=== PATIENT | female | born 1970 | race Caucasian/White ===

== ENCOUNTER 2016-05-05 12:54 | Emergency (ER) | payer SELFPAY ==
[2016-05-05] MEDS ORDERED: ONDANSETRON 4 MG ODT STARTER PACK 2 TAB BTL PO STA (15:02)
[2016-05-05] MEDS ORDERED: cloNIDine HCL 0.2 MG TAB PO STA (15:09)
[2016-05-05 15:18] VITALS: RESP 18
--- NOTE | 2016-05-05 15:24 | ED ---
General Adult HPI - General Chief complaint: Fever Stated complaint: Vomiting/Ear Pain Time Seen by Provider: 05/05/16 14:42 Source: patient, RN notes reviewed Mode of arrival: ambulatory Limitations: no limitations - History of Present Illness Initial comments: Chief complaint and history of present illness a 45-year-old female here with complaint of right ear pain. After major complaint. She also adds that she's had nausea vomiting diarrhea for several weeks. Her has as well. Denies any fever at home at this time. No blood in the vomit or diarrhea. - Related Data Home Medications Medication Instructions Recorded Confirmed Albuterol Inhaler [Ventolin Hfa 2 puff INHALATION RT-QID PRN 05/05/16 05/05/16 Inhaler] Albuterol Nebulized [Ventolin 2.5 mg INHALATION RT-QID PRN 05/05/16 05/05/16 Nebulized] Previous Rx's Medication Instructions Recorded Amoxicillin 500 mg PO Q8H 10 Days 05/05/16 Lisinopril [Zestril] 5 mg PO DAILY #60 tab 05/05/16 Allergies Allergy/AdvReac Type Severity Reaction Status Date / Time codeine AdvReac Nausea & Verified 05/05/16 16:16 Vomiting Review of Systems ROS Statement: Those systems with pertinent positive or pertinent negative responses have been documented in the HPI. Review of systems no headache or visual acuity changes she is complaining of right ear pain. No stiff neck or neck pain no chest pain or shortness of breath no coughing. She reports she's had nausea vomiting and diarrhea for several weeks. She Tylenol and NyQuil. Decreased her smoking. No neuro deficits. All systems were otherwise reviewed. Past medical problems significant for COPD. The patient denies any other medical problems denies any history of hypertension. Though her blood pressure significantly elevated here to a weight of 116 this be rechecked and treated as needed. The patient's surgeries include hysterectomy, tubal ligation and left arm surgery. Family history mother had lung cancer father had heart disease. Patient ALLERGIES to codeine. She does smoke strongly encouraged stop drink alcohol socially. ROS Other: All systems not noted in ROS Statement are negative. Past Medical History Past Medical History: COPD History of Any Multi-Drug Resistant Organisms: None Reported Past Surgical History: Hysterectomy, Orthopedic Surgery, Tubal Ligation Additional Past Surgical History / Comment(s): left arm Past Psychological History: No Psychological Hx Reported Smoking Status: Current every day smoker Past Alcohol Use History: None Reported Past Drug Use History: None Reported General Exam - General Exam Comments Initial Comments: General: The patient is awake and alert, complaining of right ear pain. Also history nausea vomiting diarrhea. Vital signs show temperature 98.2 pulse 86 respiratory rate 20 pulse ox 90% room air blood pressure elevated to wait of 116. This is repeated was 210/107. The patient received by mouth Catapres. Eye: Pupils are equal, round and reactive to light, extra-ocular movements are intact ; there is normal conjunctiva bilaterally. No signs of icterus. Ears, nose, mouth and throat: There are moist mucous membranes and no oral lesions. Right ear red tympanic membrane. Left ear normal. Neck: The neck is supple, there is no tenderness , no anterior cervical lymphadenopathy. Cardiovascular: There is a regular rate and rhythm. No murmur, rub or gallop is appreciated. Respiratory: Lungs are clear to auscultation, respirations are non-labored, breath sounds are equal. No wheezes, stridor, rales, or rhonchi. Gastrointestinal: Nausea vomiting diarrhea without abdominal pain at this time. Back: There is no tenderness to palpation in the midline. There is no obvious deformity. No rashes noted. Musculoskeletal: Normal ROM, no tenderness, There is no pedal edema. There is no calf tenderness or swelling. Sensation intact. Pulses equal bilaterally 2+. Neurological: No neuro deficits. No complaint of any dizziness with movement. Skin: Skin is warm and dry and 20 of any rashes or lesions. Limitations: no limitations Course Vital Signs 05/05/16 05/05/16 05/05/16 13:02 15:06 16:35 Temperature 98.2 F 98.1 F Pulse Rate 86 78 77 Respiratory 20 18 18 Rate Blood Pressure 208/116 210/107 169/102 O2 Sat by Pulse 98 97 97 Oximetry Medical Decision Making - Medical Decision Making Medical decision-making. The patient was given Catapres 0.2 and blood pressures coming down to 169/102 at this time. Patient wants to go. She'll be placed on lisinopril 5 mg daily for the next week and then told increase to 10 mg until she sees her family physician within the next 2-4 weeks. The patient will be placed on amoxicillin 500 3 times a day because of right ear infection. This needs to be rechecked as well in 2 weeks. Disposition Clinical Impression: Right otitis media, Hypertension Disposition: HOME SELF-CARE Condition: Fair Instructions: Otitis Media (ED), Hypertension (ED) Additional Instructions: Take medications as directed including lisinopril 5 mg daily. 2 blood pressure checked daily and follow-up with family physician for reevaluation as well as reevaluation of the right ear infection. Prescriptions: Amoxicillin 500 mg PO Q8H 10 Days Lisinopril [Zestril] 5 mg PO DAILY #60 tab Time of Disposition: 16:58
[2016-05-05 16:36] VITALS: BP 169/102; PULSE 77; TEMP 98.1
== END 2016-05-05 17:18 | disposition home or self-care (01) ==
LOC: EC 12:54
DX: H66.91 Otitis media, unspecified, right ear (principal); I10 Essential (primary) hypertension; J44.9 Chronic obstructive pulmonary disease, unspecified; F17.200 Nicotine dependence, unspecified, uncomplicated; Z88.5 Allergy status to narcotic agent
CPT/HCPCS: 99283; S0119

== ENCOUNTER → 2020-09-17 | Outpatient (CLI) | payer OTHER ==
--- NOTE | 2020-09-17 11:55 | XR ---
EXAMINATION TYPE: XR chest 2V DATE OF EXAM: 09/17/2020 COMPARISON: NONE TECHNIQUE: PA and lateral views submitted. HISTORY: Cough FINDINGS: The lungs are clear and there is no pneumothorax, pleural effusion, or focal pneumonia. Heart size normal with no overt failure. Slight curvature of the spine. Slightly coarsened central interstitium. Mild hyperinflation. IMPRESSION: 1. No consolidative pneumonia. Mild hyperinflation suggestive of asthma or COPD. Slight coarsening of the interstitium could be associated with bronchitis or early interstitial pneumonitis correlate cli nically..
== END | disposition home or self-care (01) ==
LOC: RADXRMAIN 11:19
PROVIDERS: ATTEND Family Medicine
DX: R91.8 Other nonspecific abnormal finding of lung field (principal)
CPT/HCPCS: 71046

== ENCOUNTER 2021-08-12 07:37 | Day surgery (SDC) | payer OTHER ==
[~2021-08-12 07:37] MED LIST: LACTATED RINGERS 1,000 ML IV SCH; LIDOCAINE 1% (10MG/ML) FOR IV START INTRADERMA PRN
--- NOTE | 2021-08-12 08:03 | P.GSHP ---
History of Present Illness H&P Date: 08/12/21 CHIEF COMPLAINT: Colon screen HISTORY OF PRESENT ILLNESS: The patient is a 50-year-old female who presents for colon screen. Lower endoscopy was offered for further evaluation and management. PAST MEDICAL HISTORY: Please see list. PAST SURGICAL HISTORY: Please see list. MEDICATIONS: Please see list. ALLERGIES: Please see list. SOCIAL HISTORY: No illicit drug use FAMILY HISTORY: No reports of Crohn disease or ulcerative colitis. REVIEW OF ORGAN SYSTEMS: CONSTITUTIONAL: No reports of fevers or chills. PHYSICAL EXAM: VITAL SIGNS: Stable GENERAL: Well-developed pleasant in no acute distress. HEENT: No scleral icterus. Extraocular movements grossly intact. Moist buccal mucosa. NECK: Supple without lymphadenopathy. CHEST: Unlabored respirations. Equal bilateral excursions. CARDIOVASCULAR: Regular rate and rhythm. Distal 2+ pulses. ABDOMEN: Soft, nontender, nondistended. MUSCULOSKELETAL: No clubbing, cyanosis, or edema. ASSESSMENT: 1. Colon screen. PLAN: 1. Recommend proceeding with a lower endoscopy Past Medical History Past Medical History: COPD, Hypertension History of Any Multi-Drug Resistant Organisms: None Reported Past Surgical History: Hysterectomy, Orthopedic Surgery, Tubal Ligation Additional Past Surgical History / Comment(s): left arm surg., CTS mihir, tennis elbow right Past Anesthesia/Blood Transfusion Reactions: No Reported Reaction Smoking Status: Current every day smoker Medications and Allergies Home Medications Medication Instructions Recorded Confirmed Type Albuterol Nebulized [Ventolin 2.5 mg INHALATION RT-QID PRN 05/05/16 08/10/21 History Nebulized] Albuterol Sulfate [Proair Hfa] 1 - 2 puff INHALATION QID 08/10/21 08/10/21 History Metoprolol Succinate (ER) [Toprol 50 mg PO DAILY 08/10/21 08/10/21 History Xl] Allergies Allergy/AdvReac Type Severity Reaction Status Date / Time codeine AdvReac Nausea & Verified 08/10/21 15:35 Vomiting
[2021-08-12 08:28] VITALS: TEMP 97.8
[2021-08-12] MEDS ORDERED: PROPOFOL 10 MG/ML 20 ML VIAL IV ONE (08:49)
--- NOTE | 2021-08-12 09:25 | P.PCN ---
Date of Procedure: 08/12/21 Description of Procedure: PREOPERATIVE DIAGNOSIS: Colonoscopy screening POSTOPERATIVE DIAGNOSIS: Internal and external hemorrhoids, grade 4 Tubular adenoma splenic flexure Tubular adenoma transverse colon OPERATION: Colonoscopy to the ileocecal valve and appendiceal orifice, cecum Colonoscopy with cold forceps biopsy SURGEON: Bella Mcallister MD. ANESTHESIA: MAC. INDICATIONS: The patient is an 50-year-old female for colonoscopy screening. Benefits and risks were described and informed consent was obtained. DESCRIPTION OF PROCEDURE: The patient had undergone Sutab prep. The patient had been brought into the operating room and laid in the left lateral decubitus position. After adequate intravenous sedation, the rectum was examined with 2% lidocaine jelly. External hemorrhoids were encountered. The rectal tone was within normal limits. No lesions were palpated in the rectal vault. An Olympus colonoscope was advanced until the cecum, ileocecal valve and appendiceal orifice were clearly viewed. The prep was good. No sigmoid diverticulosis was encountered. Colonic polyps were found and removed. No evidence of focal colitis was found. Retroflexion of the scope demonstrated grade 4 internal hemorrhoids without active bleeding or inflammation. The colon was desufflated. The patient had tolerated the procedure well. Withdrawal time was over 6 minutes. FINDINGS: Aronchick preparation quality scale 2 (1-5) Internal hemorrhoids, grade 4 External hemorrhoids, grade 4. No arteriovenous malformations. No sigmoid diverticulosis Removal of 2 polyps: - Cold forceps biopsy at distal transverse colon, 4 mm polyp. - Cold forceps biopsy at splenic flexure, 5 mm polyp. No focal colitis. RECOMMENDATIONS: Colonoscopy in 2 years, 2023 for high-risk adenoma Plan - Discharge Summary Discharge Rx Participant: No New Discharge Prescriptions: Continue Albuterol Nebulized [Ventolin Nebulized] 2.5 mg INHALATION RT-QID PRN PRN Reason: Shortness Of Breath Metoprolol Succinate (ER) [Toprol XL] 50 mg PO DAILY Albuterol Sulfate [Proair Hfa] 1 - 2 puff INHALATION QID Discharge Medication List Albuterol Nebulized [Ventolin Nebulized] 2.5 mg INHALATION RT-QID PRN 05/05/16 [History] Albuterol Sulfate [Proair Hfa] 1 - 2 puff INHALATION QID 08/10/21 [History] Metoprolol Succinate (ER) [Toprol XL] 50 mg PO DAILY 08/10/21 [History] Follow up Appointment(s)/Referral(s): Bella Mcallister MD [STAFF PHYSICIAN] - 09/01/21 Patient Instructions/Handouts: *Surgery [facility] - (Anesthesia) Endoscopy Discharge Instructions, Hemorrhoids (ED), Colorectal Polyps (GEN), Colonoscopy (DC) Activity/Diet/Wound Care/Special Instructions: Repeat colonoscopy in 2 years, 2023 Discharge Disposition: HOME SELF-CARE
[2021-08-12 09:40] VITALS: BP 133/88; PULSE 86; RESP 18
== END 2021-08-12 10:21 | disposition home or self-care (01) ==
LOC: ORWHC2ENDO 07:37
PROVIDERS: ATTEND Surgery Plastic and Reconstructive Surgery
DX: Z12.11 Encounter for screening for malignant neoplasm of colon (principal); D12.3 Benign neoplasm of transverse colon; K64.4 Residual hemorrhoidal skin tags; K64.8 Other hemorrhoids; F17.200 Nicotine dependence, unspecified, uncomplicated; I10 Essential (primary) hypertension; J44.9 Chronic obstructive pulmonary disease, unspecified; Z79.899 Other long term (current) drug therapy; Z88.5 Allergy status to narcotic agent
CPT/HCPCS: 45380; 88305; J2704

== ENCOUNTER → 2022-01-22 | Outpatient (CLI) | payer OTHER ==
--- NOTE | 2022-01-25 09:11 | MM ---
Reason for Exam: Screening (asymptomatic). Last mammogram was performed 7 year(s) and 2 month(s) ago. Patient History: Menarche at age 13. First Full-Term at age 20. Hysterectomy at age 32. Postmenopausal. Risk Values: Mary 5 year model risk: 0.9%. NCI Lifetime model risk: 7.9%. Prior Study Comparison: 05/24/2006 Bilateral Screening Mammogram, [facility]. 12/02/2014 Bilateral Screening Mammogram, [facility]. Tissue Density: The breast tissue is heterogeneously dense. This may lower the sensitivity of mammography. Findings: Analyzed By CAD. Stable benign-appearing bilateral axillary lymph nodes. There is no suspicious group of microcalcifications or new suspicious mass in either breast. Overall Assessment: Negative, BI-RAD 1 Management: Screening Mammogram of both breasts in 1 year. A clinical breast exam by your physician is recommended on an annual basis and results should be correlated with mammographic findings. Electronically signed and approved by: Eren Holbrook M.D.
== END | disposition home or self-care (01) ==
LOC: RADMAMWWP 15:45
PROVIDERS: ATTEND Family Medicine
DX: Z12.31 Encounter for screening mammogram for malignant neoplasm of breast (principal); Z78.0 Asymptomatic menopausal state
CPT/HCPCS: 77067

== ENCOUNTER → 2022-03-04 | Outpatient (CLI) | payer OTHER ==
--- NOTE | 2022-03-04 08:45 | US ---
EXAMINATION TYPE: US gallbladder DATE OF EXAM: 03/04/2022 COMPARISON: NONE CLINICAL HISTORY: K81.1 CHRONIC CHOLECYSTITIS. Chronic cholecystitis. TECHNIQUE: Multiple sonographic images of the right upper quadrant are obtained. FINDINGS: EXAM MEASUREMENTS: Liver Length: 12.3 cm Gallbladder Wall: 0.3 cm CBD: 0.5 cm Right Kidney: 10.7 x 5.5 x 3.3 cm COUTURIERE NOTES: Exam is limited due to gas. Pancreas: Not well seen. Liver: Appears very coarse and heterogeneous in echotexture. Gallbladder: Appears anechoic. Wall measures upper limits. Evidence for sonographic Jarrett's sign: No CBD: Portions seen appear wnl Right Kidney: No hydronephrosis or masses seen IMPRESSION: 1. No acute right upper quadrant changes identified.
[2022-03-04 09:13] LABS: HCT 43.3 % (34.0-46.0); HGB 14.8 gm/dL (11.4-16.0); MCH 32.4 pg (25.0-35.0); MCHC 34.3 g/dL (31.0-37.0); MCV 94.6 fL (80.0-100.0); Mean Platelet Volume 7.5; Platelet Count 301 k/uL (150-450); RBC 4.58 m/uL (3.80-5.40); RDW 12.8 % (11.5-15.5); WBC 8.3 k/uL (3.8-10.6)
[2022-03-04 09:28] LABS: Partial Thromboplastin Time 27.2 sec (22.0-30.0); Prothrombin Time 10.7 sec (9.0-12.0)
[2022-03-04 09:32] LABS: ALT 24 U/L (4-34); AST 29 U/L (14-36); African American GFR (CKD) 89 (>60 ml/min/1.73 sqM); Albumin 4.3 g/dL (3.5-5.0); Albumin/Globulin Ratio 1.4; Alkaline Phosphatase 94 U/L (38-126); Anion Gap 6 mmol/L; Blood Urea Nitrogen 13 mg/dL (7-17); Calcium 9.1 mg/dL (8.4-10.2); Carbon Dioxide 27 mmol/L (22-30); Chloride 107 mmol/L (98-107); Glucose 85 mg/dL (74-99); Non-African American GFR(CKD) 78 (>60 ml/min/1.73 sqM); Potassium 4.7 mmol/L (3.5-5.1); Sodium 140 mmol/L (137-145); Total Bilirubin 0.4 mg/dL (0.2-1.3); Total Protein 7.3 g/dL (6.3-8.2)
--- NOTE | 2022-03-04 11:07 | NM ---
Nuclear medicine hepatobiliary scan. HISTORY: Pain. DOSAGE: The patient received 8 ounces of Ensure plus and 4.7 mCi of Technetium 99m Choletec. FINDINGS: There is normal hepatic extraction. The gallbladder is seen by 10 minutes. There is bilia ry to bowel clearance by 20 minutes. Ejection fraction is 55%. IMPRESSION: 1. Normal hepatobiliary exam
== END | disposition home or self-care (01) ==
LOC: RADUSWWP 06:59
PROVIDERS: ATTEND Surgery Plastic and Reconstructive Surgery
DX: K81.1 Chronic cholecystitis (principal); R10.9 Unspecified abdominal pain
CPT/HCPCS: 80053; 85027; 85610; 85730; 76705; 78226; 93005; A9537

== ENCOUNTER 2022-03-10 08:54 | Day surgery (SDC) | payer OTHER ==
--- NOTE | 2022-03-10 08:24 | P.GSHP ---
History of Present Illness H&P Date: 03/10/22 CHIEF COMPLAINT: GERD HISTORY OF PRESENT ILLNESS: The patient is a 51-year-old female who presents reports gastroesophageal reflux disease. Upper endoscopy was offered for further evaluation and management. PAST MEDICAL HISTORY: Please see list. PAST SURGICAL HISTORY: Please see list. MEDICATIONS: Please see list. ALLERGIES: Please see list. SOCIAL HISTORY: No illicit drug use FAMILY HISTORY: No reports of Crohn disease or ulcerative colitis. REVIEW OF ORGAN SYSTEMS: CONSTITUTIONAL: No reports of fevers or chills. GI: Denies any blood in stools or constipation. PHYSICAL EXAM: VITAL SIGNS: Stable GENERAL: Well-developed and pleasant in no acute distress. HEENT: No scleral icterus. Extraocular movements grossly intact. Moist buccal mucosa. NECK: Supple without lymphadenopathy. CHEST: Unlabored respirations. Equal bilateral excursions. CARDIOVASCULAR: Regular rate and rhythm. Distal 2+ pulses. ABDOMEN: Soft, nondistended. MUSCULOSKELETAL: No clubbing, cyanosis, or edema. ASSESSMENT: 1. Gastroesophageal reflux disease PLAN: 1. Recommend proceeding with an upper endoscopy Past Medical History Past Medical History: COPD, Hypertension History of Any Multi-Drug Resistant Organisms: None Reported Past Surgical History: Hysterectomy, Orthopedic Surgery, Tubal Ligation Additional Past Surgical History / Comment(s): left arm surg., CTS mihir, tennis elbow right Past Anesthesia/Blood Transfusion Reactions: No Reported Reaction Smoking Status: Current every day smoker Medications and Allergies Home Medications Medication Instructions Recorded Confirmed Type Albuterol Nebulized [Ventolin 2.5 mg INHALATION RT-QID PRN 05/05/16 08/12/21 H istory Nebulized] Albuterol Sulfate [Proair Hfa] 1 - 2 puff INHALATION QID 08/10/21 08/10/21 History Metoprolol Succinate (ER) [Toprol 50 mg PO DAILY 08/10/21 08/10/21 History XL] Allergies Allergy/AdvReac Type Severity Reaction Status Date / Time codeine AdvReac Nausea & Verified 08/12/21 08:17 Vomiting
[2022-03-10 09:37] VITALS: RESP 16; TEMP 97.7
[2022-03-10] MEDS ORDERED: LACTATED RINGERS 1,000 ML IV ONE ×2 (09:44)
[2022-03-10] MEDS ORDERED: LIDOCAINE 2% INJ 20 MG/ML (2 ML VIAL) ONE (10:34)
[2022-03-10] MEDS ORDERED: PROPOFOL 10 MG/ML 20 ML VIAL IV ONE (10:34)
--- NOTE | 2022-03-10 11:02 | P.PCN ---
Date of Procedure: 03/10/22 Description of Procedure: PREOPERATIVE DIAGNOSIS: Gastrointestinal bleeding POSTOPERATIVE DIAGNOSIS: Gastritis with bleeding Perez's esophagus Diaphragmatic hiatal hernia OPERATION: Esophagogastroduodenoscopy with biopsies along antrum, distal esophagus, duodenum SURGEON: Bella Mcallister MD ANESTHESIA: MAC. INDICATIONS: The patient is a 51-year-old female who presents with gastrointestinal bleeding. Benefits and risks of the procedure were described. Informed consent was obtained. DESCRIPTION: The patient was brought into the endoscopy suite and laid in the left lateral decubitus position. An Olympus gastroscope was passed along the posterior oropharynx down to the distal esophagus where the squamocolumnar junction was encountered at 33 cm from the incisors. The stomach was entered and no bile reflux was found. Additional findings are listed below. Biopsies with cold forceps were obtained of the antrum. The first through third portion of the duodenum was examined. Retroflexion of the scope confirmed Hill grade 2 lower esophageal valve. The squamocolumnar junction demonstrated LA grade D erosive esophagitis. The stomach was desufflated. The patient tolerated the procedure well. FINDINGS: Squamocolumnar junction 33 cm from the incisors. Diaphragmatic hiatus at 35 cm. Hiatal hernia, 2 cm Hill grade 2 lower esophageal valve. LA grade D erosive esophagitis with biopsies obtained Biopsies obtained of duodenum Chronic gastritis with recent bleed RECOMMENDATIONS: Upper endoscopy as needed. Plan - Discharge Summary New Discharge Prescriptions: New Omeprazole [PriLOSEC] 40 mg PO DAILY #14 cap Continue Albuterol Nebulized [Ventolin Nebulized] 2.5 mg INHALATION RT-QID PRN PRN Reason: Shortness Of Breath Metoprolol Succinate (ER) [Toprol XL] 50 mg PO DAILY Albuterol Sulfate [Proair Hfa] 1 - 2 puff INHALATION QID Discharge Medication List Albuterol Nebulized [Ventolin Nebulized] 2.5 mg INHALATION RT-QID PRN 05/05/16 [History] Albuterol Sulfate [Proair Hfa] 1 - 2 puff INHALATION QID 08/10/21 [History] Metoprolol Succinate (ER) [Toprol XL] 50 mg PO DAILY 08/10/21 [History] Omeprazole [PriLOSEC] 40 mg PO DAILY #14 cap 03/10/22 [Rx] Follow up Appointment(s)/Referral(s): Bella Mcallister MD [STAFF PHYSICIAN] - 03/23/22 Patient Instructions/Handouts: Gastritis (DC) Discharge Disposition: HOME SELF-CARE
[2022-03-10 11:04] VITALS: BP 148/91
[2022-03-10 11:41] VITALS: PULSE 85
== END 2022-03-10 11:48 | disposition home or self-care (01) ==
LOC: ORWHC2ENDO 08:54
PROVIDERS: ATTEND Surgery Plastic and Reconstructive Surgery
DX: K29.50 Unspecified chronic gastritis without bleeding (principal); K44.9 Diaphragmatic hernia without obstruction or gangrene; K22.11 Ulcer of esophagus with bleeding; J44.9 Chronic obstructive pulmonary disease, unspecified; I10 Essential (primary) hypertension; F17.200 Nicotine dependence, unspecified, uncomplicated; K64.9 Unspecified hemorrhoids; Z90.710 Acquired absence of both cervix and uterus; Z98.51 Tubal ligation status; Z98.890 Other specified postprocedural states; Z79.51 Long term (current) use of inhaled steroids; Z79.899 Other long term (current) drug therapy; Z88.5 Allergy status to narcotic agent
CPT/HCPCS: 88305; 43239; J2704; J2001

== ENCOUNTER 2022-09-09 02:21 | Inpatient (IN) | payer OTHER ==
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
[2022-09-09] MEDS ORDERED: NALOXONE 0.4 MG/ML 1 ML VIAL IV PRN (03:20)
[2022-09-09] MEDS ORDERED: ONDANSETRON 4 MG/2 ML VIAL IVP PRN (03:20)
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
[2022-09-09] MEDS: HYDROmorphone 1 MG/ML 1 ML SYRINGE IVP PRN ×4 (05:40→17:54)
[2022-09-09] MEDS ORDERED: METOCLOPRAMIDE 5 MG/ML 2 ML VIAL IVP PRN (07:24)
[2022-09-09] MEDS ORDERED: diphenhydrAMINE 50 MG/ML 1 ML VIAL IVP PRN (07:24)
[2022-09-09] MEDS ORDERED: VANCOMYCIN IV PER PHARMACY 1 EACH MISC MISCELLANE PRN (07:24)
[2022-09-09] MEDS ORDERED: GENTAMICIN PER PHARMACY MISCELLANE SCH (07:30)
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
[2022-09-09] MEDS ORDERED: VANCOMYCIN 1,000 MG in SODIUM CHLORIDE 0.9% 250 ML IVPB ONE (08:00)
[2022-09-09 08:06] LABS: HCT 43.6 % (34.0-46.0); MCH 32.1 pg (25.0-35.0); MCV 100.1 fL (80.0-100.0); Mean Platelet Volume 7.7; Platelet Count 337 k/uL (150-450); RBC 4.36 m/uL (3.80-5.40); RDW 13.1 % (11.5-15.5); WBC 21.8 k/uL (3.8-10.6)
[2022-09-09 08:22] LABS: Prothrombin Time 10.8 sec (9.0-12.0)
[2022-09-09 08:23] LABS: ALT 45 U/L (4-34); AST 101 U/L (14-36); African American GFR (CKD) >90 (>60 ml/min/1.73 sqM); Albumin 3.7 g/dL (3.5-5.0); Alkaline Phosphatase 83 U/L (38-126); Anion Gap 10 mmol/L; Blood Urea Nitrogen 13 mg/dL (7-17); Carbon Dioxide 17 mmol/L (22-30); Chloride 107 mmol/L (98-107); Glucose 127 mg/dL (74-99); Non-African American GFR(CKD) >90 (>60 ml/min/1.73 sqM); Potassium 4.1 mmol/L (3.5-5.1); Sodium 134 mmol/L (137-145); Total Bilirubin 0.6 mg/dL (0.2-1.3); Total Protein 6.5 g/dL (6.3-8.2)
[2022-09-09] MEDS ORDERED: GENTAMICIN 260 MG in SODIUM CHLORIDE 0.9% 100 ML IVPB ONE (08:30)
[2022-09-09] MEDS: IPRATROPIUM-ALBUTEROL 3 ML NEB INHALATION SCH ×4 (08:47→21:42)
[2022-09-09] MEDS ORDERED: TRANEXAMIC ACID 1,000 MG in SODIUM CHLORIDE 0.9% 100 ML IVPB ONE ×4 (09:57)
[2022-09-09] MEDS: METOPROLOL SUCCINATE (ER) 50 MG TAB.ER.24H PO SCH (11:39)
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
[2022-09-09] MEDS: VANCOMYCIN 1,000 MG in SODIUM CHLORIDE 0.9% 250 ML IVPB SCH ×2 (18:11→23:14)
[2022-09-09] MEDS ORDERED: IV FLUID CONTINUATION 1,000 ML IV ONE ×2 (18:51)
[2022-09-09] MEDS ORDERED: PHENYLEPHRINE-0.9% NACL SYG 1,000 MCG/10 ML SYRINGE ONE (19:24)
[2022-09-09] MEDS ORDERED: TRANEXAMIC 1,000 MG/100ML-NACL PREMIX BAG ONE (19:24)
[2022-09-09] MEDS ORDERED: PROPOFOL 10 MG/ML 20 ML VIAL IV ONE (19:24)
[2022-09-09] MEDS ORDERED: MIDAZOLAM 2 MG/2 ML VIAL ONE (19:24)
[2022-09-09] MEDS ORDERED: ONDANSETRON 4 MG/2 ML VIAL ONE (19:24)
[2022-09-09] MEDS ORDERED: KETAMINE 10 MG/ML 20 ML VIAL ONE (19:24)
[2022-09-09] MEDS ORDERED: fentaNYL (PF) 50 MCG/ML 2 ML AMP ONE (19:24)
[2022-09-09] MEDS ORDERED: LACTATED RINGERS 1,000 ML IV ONE (20:21)
[2022-09-09] MEDS ORDERED: ceFAZolin 3,000 MG in SODIUM CHLORIDE 0.9% IRRIGATIO 3,000 ML IRRIGATION ONE ×2 (20:21→21:15)
[2022-09-09] MEDS: HYDROcodone/APAP 7.5-325MG 1 EACH TAB PO PRN (23:23)
[2022-09-10] MEDS: HYDROmorphone 1 MG/ML 1 ML SYRINGE IVP PRN ×3 (03:11→18:55)
[2022-09-10] MEDS: PANTOPRAZOLE 40 MG TABLET PO SCH (06:20)
[2022-09-10] MEDS: HYDROcodone/APAP 7.5-325MG 1 EACH TAB PO PRN ×2 (06:22→13:48)
[2022-09-10] MEDS ORDERED: VANCOMYCIN TROUGH DUE 1 EACH MISC MISCELLANE ONE (07:00)
[2022-09-10 07:48] LABS: MCH 32.4 pg (25.0-35.0); MCHC 33.8 g/dL (31.0-37.0); MCV 95.7 fL (80.0-100.0); Mean Platelet Volume 7.9; Platelet Count 222 k/uL (150-450); RBC 3.13 m/uL (3.80-5.40); RDW 12.9 % (11.5-15.5)
[2022-09-10 07:54] LABS: HGB 10.1 gm/dL (11.4-16.0)
[2022-09-10] MEDS: METOPROLOL SUCCINATE (ER) 50 MG TAB.ER.24H PO SCH (07:56)
[2022-09-10] MEDS: SERTRALINE 50 MG TAB PO SCH (07:56)
[2022-09-10] MEDS: VANCOMYCIN 1,000 MG in SODIUM CHLORIDE 0.9% 250 ML IVPB SCH (07:59)
[2022-09-10 08:00] LABS: ALT 32 U/L (4-34); AST 74 U/L (14-36); African American GFR (CKD) >90 (>60 ml/min/1.73 sqM); Albumin 2.7 g/dL (3.5-5.0); Alkaline Phosphatase 69 U/L (38-126); Anion Gap 0 mmol/L; Blood Urea Nitrogen 7 mg/dL (7-17); Calcium 7.7 mg/dL (8.4-10.2); Carbon Dioxide 27 mmol/L (22-30); Chloride 105 mmol/L (98-107); Glucose 108 mg/dL (74-99); Magnesium 1.8 mg/dL (1.6-2.3); Non-African American GFR(CKD) >90 (>60 ml/min/1.73 sqM); Phosphorus 2.2 mg/dL (2.5-4.5); Potassium 3.6 mmol/L (3.5-5.1); Sodium 132 mmol/L (137-145); Total Bilirubin 0.4 mg/dL (0.2-1.3)
[2022-09-10] MEDS ORDERED: GENTAMICIN 260 MG in SODIUM CHLORIDE 0.9% 100 ML IVPB SCH (08:00)
[2022-09-10 08:09] LABS: Creatine Kinase 1342 U/L (30-135)
--- NOTE | 2022-09-10 08:32 | FL ---
EXAMINATION TYPE: FL guidance operating room DATE OF EXAM: 09/09/2022 HISTORY: Fluoroscopy time Total dose area product (DAP) in uGy*m?, mGy*cm? (or similar): 0.8205 IMPRESSION: 1. Fluoroscopy time.
[2022-09-10] MEDS: IPRATROPIUM-ALBUTEROL 3 ML NEB INHALATION SCH ×4 (08:34→21:53)
--- NOTE | 2022-09-10 08:43 | XR ---
EXAMINATION TYPE: XR tibia fibula LT DATE OF EXAM: 09/09/2022 COMPARISON: NONE HISTORY: Pain TECHNIQUE: 6 views are submitted. FINDINGS: Displaced fractures of the mid diaphysis fibula distal diaphysis tibia are seen as postsurgical dubois e involving the tibia which appears in near anatomic IMPRESSION: 1. Postoperative changes
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
--- NOTE | 2022-09-10 09:28 | XR ---
EXAMINATION TYPE: XR chest 1V portable DATE OF EXAM: 09/10/2022 COMPARISON: 09/09/2022 HISTORY: Chest tube TECHNIQUE: Single frontal view of the chest is obtained. FINDINGS: There is no focal air space opacity, pleural effusion, or pneumothorax seen. The cardiac silhouette size is within normal limits. The osseous structures are intact. Chest tube is noted on the right. There is subcutaneous emphysema along the right chest wall. Right lower rib fractures stab le. IMPRESSION: 1. No sizable pneumothorax post chest tube insertion. Stable subcutaneous emphysema
[2022-09-10] MEDS ORDERED: THIAMINE 100 MG/ML 2 ML VIAL IM STA (11:34)
[2022-09-10] MEDS ORDERED: LORazepam 0.5 MG TAB PO PRN (11:34)
[2022-09-10] MEDS ORDERED: LORazepam 1 MG TAB PO PRN ×3 (11:34)
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
[2022-09-10] MEDS ORDERED: ALBUTEROL NEBULIZED 2.5 MG/3 ML INHALATION PRN (14:15)
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
[2022-09-10] MEDS: NICOTINE 21MG/24HR PATCH TRANSDERM SCH (16:07)
[2022-09-10] MEDS ORDERED: VANCOMYCIN 1,000 MG in SODIUM CHLORIDE 0.9% 250 ML IVPB SCH (17:00)
[2022-09-10] MEDS: HYDROcodone/APAP 5-325MG 1 EACH TAB PO PRN (21:08)
[2022-09-11] MEDS: HYDROmorphone 1 MG/ML 1 ML SYRINGE IVP PRN ×4 (00:48→18:40)
[2022-09-11] MEDS: HYDROcodone/APAP 5-325MG 1 EACH TAB PO PRN ×2 (06:51→21:15)
[2022-09-11] MEDS: PANTOPRAZOLE 40 MG TABLET PO SCH (06:52)
--- NOTE | 2022-09-11 07:14 | XR ---
EXAMINATION TYPE: XR chest 1V portable DATE OF EXAM: 09/11/2022 HISTORY: Shortness of breath. COMPARISON: 09/10/2022 TECHNIQUE: Single view of the chest is submitted. FINDINGS: Right-sided chest tube is unchanged in position. Subcutaneous emphysema seen along the right chest wa ll. There is no evidence for sizable pneumothorax. Reticulonodular infiltrates persist throughout bot h lung pichardo. The heart is stable. Hilar and mediastinal structures are within normal limits. Degenerative changes are seen of the dorsal spine. IMPRESSION: 1. Overall the appearance of the chest is stable.
[2022-09-11] MEDS: IPRATROPIUM-ALBUTEROL 3 ML NEB INHALATION SCH ×4 (08:10→21:45)
[2022-09-11 08:29] LABS: HCT 28.9 % (34.0-46.0); HGB 9.8 gm/dL (11.4-16.0); MCH 33.3 pg (25.0-35.0); MCHC 34.1 g/dL (31.0-37.0); MCV 97.6 fL (80.0-100.0); Platelet Count 222 k/uL (150-450); RBC 2.96 m/uL (3.80-5.40); RDW 12.6 % (11.5-15.5); WBC 14.9 k/uL (3.8-10.6)
[2022-09-11 08:53] LABS: African American GFR (CKD) >90 (>60 ml/min/1.73 sqM); Anion Gap 1 mmol/L; Blood Urea Nitrogen 8 mg/dL (7-17); Calcium 7.8 mg/dL (8.4-10.2); Carbon Dioxide 29 mmol/L (22-30); Chloride 103 mmol/L (98-107); Glucose 99 mg/dL (74-99); Non-African American GFR(CKD) >90 (>60 ml/min/1.73 sqM); Potassium 3.6 mmol/L (3.5-5.1); Sodium 133 mmol/L (137-145)
[2022-09-11] MEDS: SERTRALINE 50 MG TAB PO SCH (08:59)
[2022-09-11] MEDS: THIAMINE 100 MG TAB PO SCH (08:59)
[2022-09-11] MEDS: NICOTINE 21MG/24HR PATCH TRANSDERM SCH (08:59)
[2022-09-11] MEDS: METOPROLOL SUCCINATE (ER) 50 MG TAB.ER.24H PO SCH (08:59)
[2022-09-11] MEDS: HYDROcodone/APAP 7.5-325MG 1 EACH TAB PO PRN (11:54)
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
[2022-09-11] MEDS: ENOXAPARIN 30 MG/0.3 ML SYRINGE SQ SCH ×2 (14:06→15:29)
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
[2022-09-12] MEDS: HYDROmorphone 1 MG/ML 1 ML SYRINGE IVP PRN ×3 (00:15→20:44)
[2022-09-12] MEDS: HYDROcodone/APAP 7.5-325MG 1 EACH TAB PO PRN ×3 (04:23→17:02)
[2022-09-12] MEDS: PANTOPRAZOLE 40 MG TABLET PO SCH (06:37)
--- NOTE | 2022-09-12 07:26 | XR ---
EXAMINATION TYPE: XR chest 1V DATE OF EXAM: 09/12/2022 HISTORY: Chest Tube removal COMPARISON: 09/11/2022 TECHNIQUE: Single view of the chest is submitted. FINDINGS: Right-sided chest tube has been removed. Pneumothorax has recurred with apical pleural distance of ap proximately 1.5 cm and estimated at 10%. Reticulonodular infiltrates throughout both lung pichardo righ t is within the right upper lobe. Subcutaneous air seen. The heart is stable. Hilar and mediastinal structures are within normal limits. Degenerative changes are seen of the dorsal spine. Fractured right rib 5. IMPRESSION: 1. Right-sided chest tube has been removed. Pneumothorax has recurred with apical pleural distance o f approximately 1.5 cm and estimated at 10%. Reticulonodular infiltrates throughout both lung pichardo right is within the right upper lobe.
[2022-09-12] MEDS: IPRATROPIUM-ALBUTEROL 3 ML NEB INHALATION SCH ×4 (07:53→21:13)
[2022-09-12] MEDS: ENOXAPARIN 30 MG/0.3 ML SYRINGE SQ SCH (08:52)
[2022-09-12] MEDS: SERTRALINE 50 MG TAB PO SCH (08:53)
[2022-09-12] MEDS: METOPROLOL SUCCINATE (ER) 50 MG TAB.ER.24H PO SCH (08:53)
[2022-09-12] MEDS: THIAMINE 100 MG TAB PO SCH (08:53)
[2022-09-12] MEDS: NICOTINE 21MG/24HR PATCH TRANSDERM SCH (08:53)
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
[2022-09-13] MEDS: HYDROcodone/APAP 7.5-325MG 1 EACH TAB PO PRN ×4 (00:26→18:33)
[2022-09-13] MEDS: PANTOPRAZOLE 40 MG TABLET PO SCH (06:06)
--- NOTE | 2022-09-13 07:00 | XR ---
EXAMINATION TYPE: XR chest 1V portable DATE OF EXAM: 09/13/2022 6:35 AM COMPARISON: Chest radiographs from 09/12/2022 TECHNIQUE: XR chest 1V portable . CLINICAL INDICATION:Female, 51 years old with history of Follow-up on pneumothorax; FINDINGS: Lungs/Pleura: Slightly decreased right apical pneumothorax. Blunting of the right costophrenic angle. Similar reticular nodular changes throughout both lung pichardo. Pulmonary vascularity: Unremarkable. Heart/mediastinum: Cardiomediastinal silhouette is unremarkable. Musculoskeletal: Right rib fractures are stable. Other findings: Right chest wall subcutaneous emphysema redemonstrated. IMPRESSION: 1. Slightly decreased small right apical pneumothorax. 2. Small right pleural effusion. 3. Similar reticular nodular infiltrates throughout both lungs.
[2022-09-13] MEDS: IPRATROPIUM-ALBUTEROL 3 ML NEB INHALATION SCH ×4 (07:43→20:57)
[2022-09-13 08:04] LABS: HCT 30.1 % (34.0-46.0); HGB 9.9 gm/dL (11.4-16.0); MCH 32.6 pg (25.0-35.0); MCHC 33.1 g/dL (31.0-37.0); MCV 98.7 fL (80.0-100.0); Mean Platelet Volume 8.3; Platelet Count 343 k/uL (150-450); RBC 3.05 m/uL (3.80-5.40); RDW 12.7 % (11.5-15.5); WBC 12.5 k/uL (3.8-10.6)
[2022-09-13 08:48] LABS: ALT 17 U/L (4-34); AST 35 U/L (14-36); African American GFR (CKD) >90 (>60 ml/min/1.73 sqM); Albumin 2.6 g/dL (3.5-5.0); Alkaline Phosphatase 138 U/L (38-126); Anion Gap 4 mmol/L; Blood Urea Nitrogen 9 mg/dL (7-17); Calcium 7.9 mg/dL (8.4-10.2); Carbon Dioxide 30 mmol/L (22-30); Chloride 99 mmol/L (98-107); Glucose 97 mg/dL (74-99); Non-African American GFR(CKD) >90 (>60 ml/min/1.73 sqM); Potassium 3.6 mmol/L (3.5-5.1); Sodium 133 mmol/L (137-145); Total Bilirubin 0.5 mg/dL (0.2-1.3); Total Protein 5.2 g/dL (6.3-8.2)
[2022-09-13] MEDS: ENOXAPARIN 30 MG/0.3 ML SYRINGE SQ SCH (09:20)
[2022-09-13] MEDS: NICOTINE 21MG/24HR PATCH TRANSDERM SCH (09:20)
[2022-09-13] MEDS: SERTRALINE 50 MG TAB PO SCH (09:21)
[2022-09-13] MEDS: METOPROLOL SUCCINATE (ER) 50 MG TAB.ER.24H PO SCH (09:21)
[2022-09-13] MEDS: HYDROcodone/APAP 5-325MG 1 EACH TAB PO PRN ×3 (09:21→22:04)
[2022-09-13] MEDS: THIAMINE 100 MG TAB PO SCH (09:21)
[2022-09-13] MEDS: HYDROmorphone 1 MG/ML 1 ML SYRINGE IVP PRN (09:50)
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
[2022-09-13] MEDS: DOCUSATE 100 MG CAP PO SCH ×2 (11:00→20:03)
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
[2022-09-14] MEDS: HYDROcodone/APAP 7.5-325MG 1 EACH TAB PO PRN (05:01)
[2022-09-14] MEDS: PANTOPRAZOLE 40 MG TABLET PO SCH (06:39)
[2022-09-14] MEDS: IPRATROPIUM-ALBUTEROL 3 ML NEB INHALATION SCH ×4 (07:47→21:18)
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
[2022-09-14] MEDS: SERTRALINE 50 MG TAB PO SCH (08:39)
[2022-09-14] MEDS: METOPROLOL SUCCINATE (ER) 50 MG TAB.ER.24H PO SCH (08:39)
[2022-09-14] MEDS: ENOXAPARIN 30 MG/0.3 ML SYRINGE SQ SCH (08:39)
[2022-09-14] MEDS: THIAMINE 100 MG TAB PO SCH (08:39)
[2022-09-14] MEDS: DOCUSATE 100 MG CAP PO SCH ×2 (08:39→19:51)
[2022-09-14] MEDS: HYDROcodone/APAP 5-325MG 1 EACH TAB PO PRN (08:39)
[2022-09-14] MEDS: NICOTINE 21MG/24HR PATCH TRANSDERM SCH (08:39)
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
[2022-09-14] MEDS: HYDROcodone/APAP 10-325MG 1 EACH TAB PO PRN ×3 (12:35→22:27)
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
[2022-09-15] MEDS: PANTOPRAZOLE 40 MG TABLET PO SCH (06:03)
[2022-09-15] MEDS: HYDROcodone/APAP 10-325MG 1 EACH TAB PO PRN ×2 (06:12→10:01)
[2022-09-15] MEDS: IPRATROPIUM-ALBUTEROL 3 ML NEB INHALATION SCH ×2 (08:45→11:19)
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
[2022-09-15 09:58] VITALS: BP 128/74; RESP 16; TEMP 97.8
[2022-09-15] MEDS: SERTRALINE 50 MG TAB PO SCH (09:58)
[2022-09-15] MEDS: NICOTINE 21MG/24HR PATCH TRANSDERM SCH (09:58)
[2022-09-15] MEDS: THIAMINE 100 MG TAB PO SCH (09:58)
[2022-09-15] MEDS: METOPROLOL SUCCINATE (ER) 50 MG TAB.ER.24H PO SCH (09:58)
[2022-09-15] MEDS: DOCUSATE 100 MG CAP PO SCH (09:58)
[2022-09-15] MEDS: ENOXAPARIN 30 MG/0.3 ML SYRINGE SQ SCH (09:58)
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
[2022-09-15 11:29] VITALS: PULSE 88
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
== END 2022-09-15 12:56 | disposition home health service (06) | DRG 912 ==
LOC: EC 02:21 → 4SSUR 03:20 → 3SCARD 03:36
PROVIDERS: ADMIT Orthopaedic Surgery; ATTEND Orthopaedic Surgery
PROC: 0QSH06Z Reposition Left Tibia with Intramedullary Internal Fixation Device, Open Approach (ICD-10-PCS; principal; 2022-09-09 12:35)
DX: S82.302B Unspecified fracture of lower end of left tibia, initial encounter for open fracture type I or II (principal); S82.452B Displaced comminuted fracture of shaft of left fibula, initial encounter for open fracture type I or II; S27.0XXA Traumatic pneumothorax, initial encounter; J96.01 Acute respiratory failure with hypoxia; E87.20 Acidosis, unspecified; S22.41XA Multiple fractures of ribs, right side, initial encounter for closed fracture; D62 Acute posthemorrhagic anemia; E87.1 Hypo-osmolality and hyponatremia; T79.7XXA Traumatic subcutaneous emphysema, initial encounter; J44.9 Chronic obstructive pulmonary disease, unspecified; F10.129 Alcohol abuse with intoxication, unspecified; I10 Essential (primary) hypertension; M50.30 Other cervical disc degeneration, unspecified cervical region; R74.01 Elevation of levels of liver transaminase levels; Y90.8 Blood alcohol level of 240 mg/100 ml or more; F17.210 Nicotine dependence, cigarettes, uncomplicated; Z71.6 Tobacco abuse counseling; Z79.899 Other long term (current) drug therapy; Z88.5 Allergy status to narcotic agent; V23.59XA Other motorcycle passenger injured in collision with car, pick-up truck or van in traffic accident, initial encounter; Y92.410 Unspecified street and highway as the place of occurrence of the external cause
CPT/HCPCS: 71045; 80048; 80053; 80170; 80202; 82550; 83735; 84100; 85027; 85610; 86850; 86900; 86901; 93005; 94640; 94760; 96365; 96366; 96367; 96368; 96375; 99285

== ENCOUNTER → 2022-10-01 | Day surgery (SDC) | payer OTHER | LOC: MPHPCCSM 12:00 | PROVIDERS: ATTEND Internal Medicine | DX: R10.9 Unspecified abdominal pain (principal); J44.9 Chronic obstructive pulmonary disease, unspecified; F41.1 Generalized anxiety disorder; F17.210 Nicotine dependence, cigarettes, uncomplicated; Z79.51 Long term (current) use of inhaled steroids; Z80.1 Family history of malignant neoplasm of trachea, bronchus and lung; Z79.899 Other long term (current) drug therapy; Z88.5 Allergy status to narcotic agent | CPT/HCPCS: 71045; G0463; 99213 ==

== ENCOUNTER → 2022-11-30 | Outpatient (CLI) | payer OTHER ==
--- NOTE | 2022-11-30 11:48 | CT ---
EXAMINATION TYPE: CT chest w con DATE OF EXAM: 11/30/2022 COMPARISON: 05/10/2022 HISTORY: h/o lung nodules, f/u CT DLP: 134.2 mGycm Automated exposure control for dose reduction was used. CONTRAST: CT scan of the chest is performed with IV Contrast, patient injected with 100 mL of Isovue 300. FINDINGS: LUNGS: Left upper lobe pulmonary nodule measures 7 mm versus 6.2 mm previously seen on image 30 seque nce 4. There is also smaller adjacent 4 mm pulmonary nodule is seen best on image 31. Additional nodu les are seen with certainty at this time. No evidence of volume loss or free fluid. No consolidation seen. MEDIASTINUM: There are no greater than 1 cm hilar or mediastinal lymph nodes. No pericardial effusi on is seen. 8.4 mm AP window lymph node seen. Thoracic aorta is of normal caliber. The heart is not enlarged. UPPER ABDOMEN: No significant abnormality appreciated. OTHER: No additional significant abnormality is seen. IMPRESSION: 1 others slight enlargement in left upper lobe pulmonary nodule. As well as an adjacent smaller nodul e. Continued short-term follow-up is recommended in 3 months.
== END | disposition home or self-care (01) ==
LOC: RADCTMAIN 10:53
PROVIDERS: ATTEND Internal Medicine
DX: R91.8 Other nonspecific abnormal finding of lung field (principal)
CPT/HCPCS: 71260; Q9967

== ENCOUNTER → 2023-04-06 | Outpatient (CLI) | payer OTHER ==
--- NOTE | 2023-04-06 15:31 | CT ---
EXAMINATION TYPE: CT chest w con CT DLP: 169 mGycm, Automated exposure control for dose reduction was used. DATE OF EXAM: 04/06/2023 8:58 AM COMPARISON: 11/30/2022. CLINICAL INDICATION:Female, 52 years old with history of R079 CHEST PAIN, UNSPECIFIED E079 DISORDER O F THYR; TECHNIQUE: Multiple axial images were obtained through the chest. Sagittal and coronal reformats were created for review. Contrast used: mL of (None if empty) Oral contrast used: (None if empty) FINDINGS: LUNGS/ PLEURA: Heart and pulmonary nodules in the left upper lobe which have increased in size now me asuring 10 x 9 mm and 7 x 6 mm previously 7 x 6 mm and 5 mm respectively. There is likely some postob structive atelectasis extending towards the periphery. Mild emphysema changes. No focal consolidation , pneumothorax or pleural effusion. AIRWAY: Patent and unremarkable. HEART: Size within normal limits. MEDIASTINUM: Enlarged lymph nodes have increased in size from prior. AP window lymph node measuring 48 x 37 x 52 mm, previously 8 mm in short axis. Extends down towards the left pulmonary hilum. VASCULATURE: No aortic aneurysm. MUSCULOSKELETAL: New sclerosis within the anterior vertebral body of T12 as well as sclerosis of the manubrium. Remote right-sided rib fractures. SOFT TISSUES/LYMPH NODES: Unremarkable bone island in the T11 vertebral body inferior endplate. LOWER NECK: No significant findings. UPPER ABDOMEN: No significant findings. IMPRESSION: Interval increase in size of AP window lymph node now measuring up to 52 mm with increase in size of lingular pulmonary nodules concerning for malignancy and metastatic disease. Sclerosis of the sternum and T12 vertebral body also present and suspicious for osseous metastatic disease. Further evaluatio n with PET/CTs recommended.
== END | disposition home or self-care (01) ==
LOC: RADCTMAIN 08:42
PROVIDERS: ATTEND Internal Medicine
DX: R91.8 Other nonspecific abnormal finding of lung field (principal)
CPT/HCPCS: 71260; Q9967

== ENCOUNTER 2023-04-20 06:06 | Day surgery (SDC) | payer OTHER ==
--- NOTE | 2023-04-20 06:45 | CT ---
EXAMINATION TYPE: CT chest wo con DATE OF EXAM: 04/20/2023 COMPARISON: Chest CT 2 weeks earlier. HISTORY: pre bronchial navigation. Multiple lung nodules. CT DLP: 206.3 mGycm. Automated Exposure Control for Dose Reduction was Utilized. TECHNIQUE: CT scan of the thorax is performed without IV contrast. FINDINGS: Exam is for bronchoscopy planning and not for diagnostic purposes. Small nodular opacities in the ant erior left midlung are redemonstrated. Mild emphysematous change in the lung apices bilaterally is ag ain seen. IMPRESSION: As above.
[2023-04-20] MEDS ORDERED: LACTATED RINGERS 1,000 ML IV SCH (06:55)
[2023-04-20] MEDS: LACTATED RINGERS 1,000 ML IV SCH (07:13)
[2023-04-20] MEDS: DEXAMETHASONE SOD PHOSPHATE 4 MG/ML 1 ML VIAL IVP ONE (07:25)
[2023-04-20] MEDS: ONDANSETRON 4 MG/2 ML VIAL ONE (07:25)
[2023-04-20 07:34] VITALS: TEMP 98
[2023-04-20] MEDS ORDERED: NEOSTIGMINE 1 MG/ML 10 ML VIAL ONE (07:42)
[2023-04-20] MEDS ORDERED: LIDOCAINE 1% INJ 10MG/ML (20 ML MDV) ONE (07:42)
[2023-04-20] MEDS ORDERED: GLYCOPYRROLATE 0.2 MG/ML 2 ML VIAL ONE (07:42)
[2023-04-20] MEDS ORDERED: ROCURONIUM 10 MG/ML (5 ML VIAL) IV ONE (07:42)
[2023-04-20] MEDS ORDERED: PROPOFOL 10 MG/ML 20 ML VIAL IV ONE (07:42)
[2023-04-20] MEDS ORDERED: fentaNYL (PF) 50 MCG/ML 2 ML AMP ONE (07:42)
[2023-04-20] MEDS ORDERED: MIDAZOLAM 2 MG/2 ML VIAL ONE (07:42)
[2023-04-20] MEDS ORDERED: SUCCINYLCHOLINE CHLORIDE 200 MG/10 ML VIAL IV ONE (07:42)
--- NOTE | 2023-04-20 09:20 | P.PCN ---
Date of Procedure: 04/20/23 Preoperative Diagnosis: Description of Procedure: Operative Findings: Preoperative Diagnosis: Left upper lobe/suprahilar mass Postoperative Diagnosis: Left upper lobe/suprahilar mass Mediastinal adenopathy Procedure(s) Performed: Flexible bronchoscopy Robotic-assisted bronchoscopy and addition to radial ultrasound evaluation of the lung mass Robotic-assisted transbronchial needle aspirate, transbronchial biopsies, transbronchial brushing of the left hilar mass in addition to a bronchioloalveolar lavage Robotic-assisted transbronchial needle aspirate, transbronchial biopsies, transbronchial brushing of the left upper lobe nodule in addition to a bronchioloalveolar lavage Endobronchial ultrasound and the TBNA of station 4L mediastinal lymph nodes Anesthesia: CLAUDETTEA Surgeon: Emperatriz Villalobos Estimated Blood Loss (ml): 0 Pathology: other Condition: stable Disposition: same day Operative Findings: A physical exam was performed. Informed consent was obtained from the patient after explaining all the risks (pneumothorax, life threatening bleeding, infection and adverse effects due to medications), benefits and alternatives to the procedure which the patient appeared to understand and so stated. The patient was connected to the monitoring devices. General anesthesia was induced and the patient was intubated by anesthesia. A final timeout was performed and the procedure confirmed by the attending staff bronchoscopist. The bronchoscope was inserted and the airway examined. The flexible bronchoscope was removed and the robotic bronchoscope was inserted. Registration was completed. I next guided the robotic bronchoscope using the navigation system into the left hilar mass through the apical segment . Once in proper position, the bronchoscope was frozen. The radial EBUS probe was placed through the bronchoscope and confirmed abnormal u/s images vs normal lung. A needle was placed through the working channel and under fluoroscopic guidance, we sampled the area thought to have the mass twice. We then used a cloud biopsy pattern with ultrasound confirmation for 6 additional passes with the needle. U/S evaluation was then used to reconfirm location. Forceps were next introduced through working channel and extended the appropriate distance and 4 transbronchial biopsies were performed using fluoroscopic guidance. The u/s probe was then reinserted to confirm location. When confirmed this process was repeated for a total of 6 transbronchial biopsies. A brush was placed through the extendable working channel for 1 pass with fluoroscopic guidance. Endobronchial brushings of the left upper lobe mass was done., 20ml of saline was then instilled into the area of the lesion. The robotic bronchoscope was removed and the airway inspected with a flexible bronchoscope and 10 ml of effluent from the BAL was collected. I next guided the robotic bronchoscope using the navigation system into the left hilar pulmonary nodule (target #2) through the apical/anterior segment . Once in proper position, the bronchoscope was frozen. The radial EBUS probe was placed through the bronchoscope and confirmed abnormal u/s images vs normal lung. A needle was placed through the working channel and under fluoroscopic guidance, we sampled the area thought to have the mass twice. We then used a cloud biopsy pattern with ultrasound confirmation for 6 additional passes with the needle. U/S evaluation was then used to reconfirm location. Forceps were next introduced through working channel and extended the appropriate distance and 4 transbronchial biopsies were performed using fluoroscopic guidance. The u/s probe was then reinserted to confirm location. When confirmed this process was repeated for a total of 6 transbronchial biopsies. A brush was placed through the extendable working channel for 1 pass with fluoroscopic guidance. Endobronchial brushings of the left upper lobe mass was done., 20ml of saline was then instilled into the area of the lesion. The robotic bronchoscope was removed and the airway inspected with a flexible bronchoscope and 10 ml of effluent from the BAL was collected. The was then discontinued and endobronchial ultrasound mediastinal lymph node evaluation. Left hilar mass was visualized next of the pulmonary artery. This was technically difficult to biopsy due to its proximity to major vessels which include aortic arch and the pulmonary artery. Rest of the mediastinal stations showed no significant adenopathy other than the left paratracheal and lymph nodes that was quite suspicious and irregular. Metabolically the aspirate of the left paratracheal lymph node was done with a total of 3 passes obtained. FINDINGS: 1.The airways inspection was essentially within normal limits 2 Successful navigation, ultrasonographic identification, and biopsies of left upper lobe mass 3 endobronchial ultrasound with transbronchial needle aspirate of 4L lymph nodes. RECOMMENDATIONS: Await pathology and cytology results The referring physician will be alerted to the results when available. The patient was advised to follow up with the referring physician with the biopsy results Patient will be called with results.
--- NOTE | 2023-04-20 09:37 | FL ---
EXAMINATION TYPE: FL bronchoscopy DATE OF EXAM: 04/20/2023 FLUOROSCOPY Fluoroscopy time of 5 minutes 48 seconds was used during left-sided bronchoscopy with biopsies. 21 i mage/s document/s the procedure. DAP 24.88 Gycm2.
--- NOTE | 2023-04-20 10:23 | XR ---
EXAMINATION TYPE: XR chest 1V DATE OF EXAM: 04/20/2023 COMPARISON: 09/13/2022 HISTORY: 52 year-old female post biopsy TECHNIQUE: Single frontal view of the chest is obtained. FINDINGS: Heart normal size. Mild hyperinflation. AP window fullness noted. Left midlung nodularity. Otherwise, no consolidation or pleural effusion. No appreciable pneumothorax. IMPRESSION: 1. Known AP window soft tissue mass and left midlung nodularity. 2. COPD. No appreciable pneumothorax.
[2023-04-20 10:29] VITALS: BP 130/83; PULSE 65; RESP 18
== END 2023-04-20 10:40 | disposition home or self-care (01) ==
LOC: ORWHC2ENDO 06:06
PROVIDERS: ATTEND Internal Medicine Critical Care Medicine
DX: C34.12 Malignant neoplasm of upper lobe, left bronchus or lung (principal); J44.9 Chronic obstructive pulmonary disease, unspecified; F41.1 Generalized anxiety disorder; Z90.89 Acquired absence of other organs; Z90.710 Acquired absence of both cervix and uterus; Z87.891 Personal history of nicotine dependence; Z79.899 Other long term (current) drug therapy
CPT/HCPCS: 88108; 88305; 88342; 88341; 71045; 71250; 31628; 31629; 31623; 31624; 31652; J2250; J0330; J1100; J2710; J2405; J2001; J3010; J2704; S2900

== ENCOUNTER → 2023-05-26 | Outpatient (CLI) | payer BC ==
--- NOTE | 2023-05-30 14:54 | PE ---
EXAMINATION TYPE: PET CT fusion skull to thigh DATE OF EXAM: 05/26/2023 COMPARISON: Chest CT April 20, 2023 HISTORY: Lung mass , recent abnormal CT. TECHNIQUE: Following the intravenous administration of 11.31 mCi of F-18 FDG, whole body images are performed from the skull base to the midthigh. Images are reviewed on the computer in the coronal, a xial, and sagittal planes. Reconstructed rotating images are created on independent workstation and reviewed on the computer. A localization and attenuation correction CT is performed in conjunction with the PET scan. Blood glucose level was 92. SCAN: Initial Scan FINDINGS: SKULL BASE AND NECK: Focus of abnormal hypermetabolic uptake right posterior vocal cord axial image [address] abnormality is nonspecific, max SUV is 6.39. CHEST, MEDIASTINUM, AND HILAR REGION: Small hypermetabolic left midlung nodule seen anteriorly redemo nstrated measuring 1.2 x 0.8 cm image 90, max SUV is 4.94. Larger mediastinal mass abutting the left pulmonary artery is redemonstrated measuring approximately 4.9 x 3.1 cm axial image 81, max SUV is 9.61 on image 83. Additional near 1.0 cm lymph node in the anterior superior mediastinum superior to the large mass axi al image 68, max SUV is 5.45. New roughly 3.0 cm focus of groundglass opacity in the right lung base image 105 with mild hypermetab olic uptake, max SUV is 5.24s. Infectious etiology needs to be considered. Correlate clinically. No additional areas of abnormal hypermetabolic uptake. ABDOMEN AND PELVIS: No hypermetabolic adrenal masses. Normal excretion is seen. No areas of abnormal hypermetabolic uptake. OSSEOUS STRUCTURES: No areas of abnormal hypermetabolic uptake. OTHER CT: Nasal septum deviated to right of midline. IMPRESSION: Suspicious left anterior mid lung nodules and larger mediastinal mass or adenopathy. No d istal metastatic disease.
== END | disposition home or self-care (01) ==
LOC: RADPETMAIN 13:35
PROVIDERS: ATTEND Internal Medicine
DX: R91.8 Other nonspecific abnormal finding of lung field (principal)
CPT/HCPCS: 78815; A9552

== ENCOUNTER → 2023-05-27 | Outpatient (CLI) | payer BC ==
--- NOTE | 2023-05-30 18:42 | MR ---
EXAMINATION TYPE: MR brain wo/w con DATE OF EXAM: 05/27/2023 5:07 PM CLINICAL INDICATION:Female, 52 years old with history of C34.12 LUNG CA, Hx lung cancer, headaches COMPARISON: 05/26/2023/CT. TECHNIQUE: Multi planar, multi sequence imaging was performed through the brain including: T1, T2, In version recovery, susceptibility weighted imaging and gradient echo imaging and Diffusion weighted im aging. The patient was then given intravenous contrast and multi planar, T1 fat-saturation images wer e obtained. IV Contrast: 5.5 cc Gadavist FINDINGS: The boyd-white junctions, ventricular system, basal cisterns appear unremarkable. Diffusion-weighted imaging shows no evidence of restricted diffusion to suggest acute/subacute infarct. Intracranial ar terial flow voids are maintained. Midline structures show no abnormality. Scattered foci of high T2 s ignal intensity are seen within the periventricular white matter. The susceptibility weighted images do not reveal any evidence for micro-hemorrhage. After administration of gadolinium, no abnormal enha ncement is seen. There is a left developmental venous anomaly in the cerebellum. The bone marrow signal is within normal limits. Paranasal sinuses and mastoid air cells: No significant paranasal sinus disease. Visualized orbits: Orbital contents are intact. IMPRESSION: 1. No evidence of intracranial mass, acute/subacute infarct, or abnormal enhancement. 2. Nonspecific white matter changes, likely related to small vessel ischemic disease.
== END | disposition home or self-care (01) ==
LOC: RADMRIMAIN 16:07
PROVIDERS: ATTEND Radiology Radiation Oncology
DX: C79.31 Secondary malignant neoplasm of brain (principal); C34.12 Malignant neoplasm of upper lobe, left bronchus or lung; R90.82 White matter disease, unspecified
CPT/HCPCS: 70553; A9585

== ENCOUNTER → 2023-09-13 | Outpatient (CLI) | payer OTHER ==
--- NOTE | 2023-09-13 10:43 | MR ---
EXAMINATION TYPE: MR brain wo/w con DATE OF EXAM: 09/13/2023 9:53 AM CLINICAL INDICATION:Female, 52 years old with history of C34.92 lung ca; COMPARISON: 05/27/2023 TECHNIQUE: Multi planar, multi sequence imaging was performed through the brain including: T1, T2, In version recovery, susceptibility weighted imaging and gradient echo imaging and Diffusion weighted im aging. The patient was then given intravenous contrast and multi planar, T1 fat-saturation images wer e obtained. IV Contrast: 5 cc Gadavist. FINDINGS: The boyd-white junctions, ventricular system, basal cisterns appear unremarkable. Diffusion-weighted imaging shows no evidence of restricted diffusion to suggest acute/subacute infarct. Intracranial ar terial flow voids are maintained. Midline structures show no abnormality. Scattered foci of high T2 s ignal intensity are seen within the periventricular white matter. The susceptibility weighted images do not reveal any evidence for micro-hemorrhage. After administration of gadolinium, no abnormal enha ncement is seen. Left cerebellar development of venous anomaly. The bone marrow signal is within normal limits. Paranasal sinuses and mastoid air cells: Mild scattered paranasal sinus disease. Visualized orbits: Orbital contents are intact. IMPRESSION: 1. No evidence of intracranial mass, acute/subacute infarct, or abnormal enhancement. 2. Nonspecific white matter changes, likely related to small vessel ischemic disease. 3. Left cerebellar development of venous anomaly.
== END | disposition home or self-care (01) ==
LOC: RADMRIMAIN 08:27
PROVIDERS: ATTEND Internal Medicine
DX: C34.92 Malignant neoplasm of unspecified part of left bronchus or lung (principal); Q04.9 Congenital malformation of brain, unspecified
CPT/HCPCS: 70553; J1642; A9585

== ENCOUNTER → 2023-09-15 | Outpatient (CLI) | payer OTHER ==
--- NOTE | 2023-09-17 12:01 | PE ---
EXAMINATION TYPE: PET CT fusion skull to thigh DATE OF EXAM: 09/15/2023 CLINICAL INDICATION:Female, 52 years old with history of C34.12 lung ca; TECHNIQUE: Following the intravenous administration of 11.16 mCi of F-18 FDG, whole body images are performed from the skull base to the midthigh. Images are reviewed on the computer in the coronal, axial, and sagittal planes. Reconstructed rotating images are created on independent workstation and reviewed on the computer. A non-contrast CT is performed in conjunction with the PET scan. Glucose level 86 mg/dL CT DLP: 203.92 mGycm, Automated exposure control for dose reduction was used. COMPARISON: CT None, PET/CT 05/26/2023, MRI: None FINDINGS: Mediastinal SUV mean is 1.8. Hepatic parenchyma SUV mean is 2.3. SKULL BASE AND NECK: No suspicious radiotracer activity. CHEST, MEDIASTINUM, AND HILAR REGION: Decrease in soft tissue mass within the mediastinum now with hazy small amount of soft tissue remaini ng. No measurable masses definitively visualized in the AP window/mediastinal. Uptake within the righ t lower lung anteriorly and left lingula anteriorly are no longer visualized. Left pulmonary hilum ma x SUV 3.1 lymph node. ABDOMEN AND PELVIS: No suspicious radiotracer activity. MUSCULOSKELETAL STRUCTURES: No suspicious radiotracer activity. OTHER CT: Chest wall [id number] tip terminating in the superior vena cava. Left fat-containing ing uinal hernia. IMPRESSION: 1. Positive response to therapy with near complete resolution of mediastinal mass seen on prior. Upt ambre within the lungs not present on today's exam. 2. There remains left pulmonary hilum mild uptake possibly physiologic.
== END | disposition home or self-care (01) ==
LOC: RADPETMAIN 09:25
PROVIDERS: ATTEND Internal Medicine
DX: C34.12 Malignant neoplasm of upper lobe, left bronchus or lung (principal)
CPT/HCPCS: 78815; A9552

== ENCOUNTER → 2024-01-10 | Outpatient (CLI) | payer OTHER ==
[2024-01-10 13:47] LABS: African American GFR (CKD) >90 (>60 ml/min/1.73 sqM); Blood Urea Nitrogen 14 mg/dL (7-17); Non-African American GFR(CKD) >90 (>60 ml/min/1.73 sqM)
--- NOTE | 2024-01-10 16:47 | CT ---
EXAMINATION TYPE: CT ChestAbdPelvis w con CT DLP: 490.6 mGycm, Automated exposure control for dose reduction was used. DATE OF EXAM: 01/10/2024 3:23 PM COMPARISON: 09/15/2023 CLINICAL INDICATION: Female, 53 years old with history of C34 Lung cancer; [facility], Follow up for lung ca ncer. Technique: CT ChestAbdPelvis w con; Multiple axial images were obtained. Two-dimensional coronal and sagittal reconstructions were obtained. Contrast used:100ml mL of Isovue 300 with IV Contrast, (None if empty) Oral contrast used: with Oral Contrast Findings: CHEST: LUNGS/ PLEURA: New parenchymal abnormality in the superior segment of the right lower lung measuring 7 mm.. Other scattered nodules are seen in the right lower lobe which are stable from 09/15/2023. Stre aky atelectasis and/or scarring in the right middle lobe near the fissure. Interstitial prominence in left upper lobe near the area of prior mediastinal lymphadenopathy is new. AIRWAY: Patent and unremarkable. HEART: Size within normal limits. MEDIASTINUM: Soft tissue in the area of the AP window/prevascular space seen in multiple priors is no t significantly changed given differences in technique with IV contrast. VASCULATURE: No aortic aneurysm. MUSCULOSKELETAL: No acute osseous abnormalities. Stable sclerotic lesion in the T12 vertebral body an teriorly. SOFT TISSUES/LYMPH NODES: Unremarkable. LOWER NECK: No significant findings. ABDOMEN: ABDOMEN LIVER: Unremarkable GALLBLADDER AND BILE DUCTS: Unremarkable. PANCREAS: Unremarkable. SPLEEN: Unremarkable. ADRENAL GLANDS: Unremarkable. KIDNEYS AND URETERS: No evidence of hydronephrosis or renal calculus. The ureters are unremarkable. PELVIS BLADDER: Unremarkable REPRODUCTIVE: Unremarkable. ABDOMEN & PELVIS STOMACH AND BOWEL: No evidence of bowel obstruction. PERITONEUM/RETROPERITONEUM: No evidence of pneumoperitoneum or free fluid. VASCULATURE: No evidence of aortic aneurysm. MUSCULOSKELETAL: No acute osseous abnormalities LYMPH NODES: No gross evidence for lymphadenopathy. SOFT TISSUE/ABDOMINAL WALL: Unremarkable IMPRESSION: 1. New right lower lobe superior segment pulmonary nodule measuring 7 mm not seen on 09/15/2023. Find ings concerning for malignancy until proven otherwise. Short-term follow-up in 3 months recommended t o ensure stability. 2. Mediastinal soft tissue in the AP window/prevascular space not significantly changed. 3. No suspicious masses or lymphadenopathy below the diaphragm. [facility], , 01/10/2024 4:45 PM
== END | disposition home or self-care (01) ==
LOC: RADCTMAIN 13:10
PROVIDERS: ATTEND Internal Medicine
CPT/HCPCS: 36415; 71260; 74177; 82565; 84520

== ENCOUNTER → 2024-03-29 | Outpatient (CLI) | payer OTHER ==
--- NOTE | 2024-04-01 23:01 | CT ---
EXAMINATION TYPE: CT ChestAbdPelvis w con DATE OF EXAM: 03/29/2024 COMPARISON: Prior CT January 10, 2024 and older studies HISTORY: lung CA CT DLP: 487.9 mGycm. Automated Exposure Control for Dose Reduction was Utilized. CONTRAST: CT scan of the thorax, abdomen and pelvis is performed with IV Contrast, patient injected with 100 mL of Isovue 300. FINDINGS: CHEST: LUNGS/ PLEURA: Slightly larger parenchymal abnormality in the superior segment of the right lower marely g now measuring 11 x 8 mm versus 7 x 6 and and more central groundglass opacity . There is new 9 mm n odule in the left lung base just above the diaphragm axial image 51 . . New 5 mm nodule in superior left lower lobe axial image 28. AIRWAY: Patent and unremarkable. HEART: Size within normal limits. MEDIASTINUM: Soft tissue in the area of the AP window/prevascular space seen on most recent prior shazia r axial image 26 is not significantly changed. Diffuse thickening of the esophageal wall is redemonst rated VASCULATURE: No aortic aneurysm. MUSCULOSKELETAL: No acute osseous abnormalities. Stable sclerotic lesion in the T12 vertebral body an teriorly on image 51. SOFT TISSUES/LYMPH NODES: Unremarkable. LOWER NECK: No significant findings. ABDOMEN: ABDOMEN LIVER: Unremarkable GALLBLADDER AND BILE DUCTS: Unremarkable. PANCREAS: Unremarkable. SPLEEN: Unremarkable. ADRENAL GLANDS: Unremarkable. KIDNEYS AND URETERS: No evidence of hydronephrosis or renal calculus. The ureters are unremarkable. PELVIS BLADDER: Unremarkable REPRODUCTIVE: Uterus is surgically absent or atrophic in appearance. ABDOMEN & PELVIS STOMACH AND BOWEL: No evidence of bowel obstruction. PERITONEUM/RETROPERITONEUM: No evidence of pneumoperitoneum or free fluid. VASCULATURE: No evidence of aortic aneurysm. MUSCULOSKELETAL: No acute osseous abnormalities LYMPH NODES: No gross evidence for lymphadenopathy. SOFT TISSUE/ABDOMINAL WALL: Unremarkable IMPRESSION: There are new left-sided nodules and enlarging right sided parenchymal abnormality. Findi ngs concerning for neoplastic progression. [facility], , 04/01/2024 10:59 PM
== END | disposition home or self-care (01) ==
LOC: RADCTMAIN 09:28
PROVIDERS: ATTEND Internal Medicine
DX: C34.92 Malignant neoplasm of unspecified part of left bronchus or lung (principal); I10 Essential (primary) hypertension; J44.9 Chronic obstructive pulmonary disease, unspecified
CPT/HCPCS: 71260; 74177; Q9967

== ENCOUNTER 2024-04-06 09:43 | Emergency (ER) | payer OTHER ==
[2024-04-06 09:55] VITALS: BP 145/92; RESP 18; TEMP 97.3
--- NOTE | 2024-04-06 10:46 | ED ---
Recheck HPI - General Chief Complaint: Recheck/Abnormal Lab/Rx Stated Complaint: Abn labs Time Seen by Provider: 04/06/24 10:00 Source: patient, RN notes reviewed Mode of arrival: ambulatory Limitations: no limitations - History of Present Illness Initial Comments: This is a 53-year-old female with history of small cell lung cancer, COPD, hypertension presenting with critically low sodium levels. Patient states she had lab work performed yesterday under Dr. Venegas, receiving a call from Dr. Allen who advised her to go to the ER on discovery of the low levels. Patient was also informed that she was dehydrated. Endorses facial swelling for the past 3 weeks but otherwise denies any current symptoms. States she has finished her chemotherapy and radiation and is currently on immunotherapy. Denies fever, chills, chest pain, dyspnea, dizziness, weakness, AMS, ALOC, abdominal pain, N/V/D. MD Complaint: abnormal lab Onset/Timin -: days(s) Symptoms Since Prior Visit: worsening swelling Context: called for abnormal lab result Associated Symptoms: other (Facial edema) - Related Data Home Medications Medication Instructions Recorded Confirmed Ipratropium [place] [Atrovent Hfa] 2 puff INHALATION RT-QID PRN 09/09/22 04/06/24 Fluticasone/Umeclidin/Vilanter 1 puff INHALATION RT-DAILY 10/18/23 04/06/24 [Trelegy Ellipta 100-62.5-25] Metoprolol Tartrate [Lopressor] 50 mg PO HS 10/18/23 04/06/24 Omeprazole 20 mg PO DAILY 10/18/23 04/06/24 Albuterol Nebulized [Ventolin 2.5 mg INHALATION RT-QID PRN 04/06/24 04/06/24 Nebulized] Albuterol Sulfate [Ventolin HFA] 2 puff INHALATION RT-QID PRN 04/06/24 04/06/24 Durvalumab [Imfinzi] 1 dose IV Q28D 04/06/24 04/06/24 Levothyroxine Sodium [Synthroid] 50 mcg PO DAILY 04/06/24 04/06/24 Allergies Allergy/AdvReac Type Severity Reaction Status Date / Time codeine AdvReac Nausea & Verified 04/06/24 10:33 Vomiting Review of Systems ROS Statement: Those systems with pertinent positive or pertinent negative responses have been documented in the HPI. ROS Other: All systems not noted in ROS Statement are negative. Past Medical History Past Medical History: Cancer, COPD, GERD/Reflux, Hypertension, Musculoskeletal Disorder Additional Past Medical History / Comment(s): hx. small cell lung cancer-had chemo & radiation, monthly immunotherapy, currently in remission History of Any Multi-Drug Resistant Organisms: None Reported Past Surgical History: Hysterectomy, Orthopedic Surgery, Tubal Ligation Additional Past Surgical History / Comment(s): left arm surg., CTS mihir, tennis elbow right, ORIF left tibia Past Anesthesia/Blood Transfusion Reactions: No Reported Reaction Past Psychological History: No Psychological Hx Reported Smoking Status: Current every day smoker Past Alcohol Use History: Rare Past Drug Use History: None Reported - Past Family History Father Family Medical History: No Reported History General Exam Limitations: no limitations General appearance: alert, in no apparent distress Head exam: Present: atraumatic, normocephalic, other (Mild/moderate generalized facial edema) Eye exam: Present: normal appearance, PERRL, EOMI. Absent: scleral icterus, conjunctival injection, periorbital swelling ENT exam: Present: normal exam, normal oropharynx (Negative oropharyngeal edema), mucous membranes moist Neck exam: Present: normal inspection. Absent: tenderness, meningismus, lym phadenopathy Respiratory exam: Present: normal lung sounds bilaterally. Absent: respiratory distress, wheezes, rales, rhonchi, stridor Cardiovascular Exam: Present: regular rate, normal rhythm, normal heart sounds. Absent: systolic murmur, diastolic murmur, rubs, gallop, clicks GI/Abdominal exam: Present: soft, normal bowel sounds. Absent: distended, tenderness, guarding, rebound, rigid Extremities exam: Present: normal inspection, full ROM, normal capillary refill. Absent: tenderness, pedal edema, joint swelling, calf tenderness Back exam: Present: normal inspection Neurological exam: Present: alert, oriented X3, CN II-XII intact Psychiatric exam: Present: normal affect, normal mood Skin exam: Present: warm, dry, intact, normal color. Absent: rash Course Vital Signs 04/06/24 04/06/24 09:53 10:53 Temperature 97.3 F L Pulse Rate 8 L 71 Respiratory 18 Rate Blood Pressure 145/92 O2 Sat by Pulse 98 Oximetry Medical Decision Making - Medical Decision Making Was pt. sent in by a medical professional or institution (, [facility], [facility], urgent care, hospital, or snf...) When possible be specific @ -Dr. Venegas, Dr. Watson Did you speak to anyone other than the patient for history (EMS, parent, family, police, friend...)? What history was obtained from this source @ -Patient's provided portion of HPI Did you review nursing and triage notes (agree or disagree)? Why? @ -I reviewed and agree with nursing and triage notes Were old charts reviewed (outside hosp., previous admission, EMS record, old EKG, old radiological studies, urgent care reports/EKG's, snf records)? Report findings @ -No old charts were reviewed Differential Diagnosis (chest pain, altered mental status, abdominal pain women, abdominal pain men, vaginal bleeding, weakness, fever, dyspnea, syncope, headache, dizziness, GI bleed, back pain, seizure, CVA, palpatations, mental health, musculoskeletal)? @ -Differential Weakness: Hypoglycemia, shock, sepsis, hyponatremia, anemia, infection, LA, ETOH, adverse medicine reaction, overdose, stroke, this is not meant to be an all-inclusive list. EKG interpreted by me (3pts min.). @ -Sinus rhythm with ST elevation in inferior contiguous leads III and aVF with no reciprocal ST depression. Ventricular rate 71 bpm, AL 149 ms, QRS duration 80 ms, QTc 374 ms. X-rays interpreted by me (1pt min.). @ -None done CT interpreted by me (1pt min.). @ -None done U/S interpreted by me (1pt. min.). @ -None done What testing was considered but not performed or refused? (CT, X-rays, U/S, labs)? Why? @ -None What meds were considered but not given or refused? Why? @ -None Did you discuss the management of the patient with other professionals (professionals i.e. [facility]IA Moy, [facility], lab, RT, psych nurse, social sciences chair, band edger, teacher, supply officer, disease case manager)? Give summary @ -No Was smoking cessation discussed for >3mins.? @ -No Was critical care preformed (if so, how long)? @ -No Were there social determinants of health that impacted care today? How? (Homelessness, low income, unemployed, alcoholism, drug addiction, trans portation, low edu. Level, literacy, decrease access to med. care, fdc, rehab)? @ -No Was there de-escalation of care discussed even if they declined (Discuss DNR or withdrawal of care, Hospice)? DNR status @ -No What co-morbidities impacted this encounter? (DM, HTN, Smoking, COPD, CAD, Cancer, CVA, ARF, Chemo, Hep., AIDS, mental health diagnosis, sleep apnea, morbid obesity)? @ -Small cell lung CA, COPD, hypertension Was patient admitted / discharged? Hospital course, mention meds given and [place], prescriptions, significant lab abnormalities, going to OR and other pertinent info. @ -Lab work notable for hyponatremia (126). CXR shows no acute cardiopulmonary process. Patient initially provided IV normal saline. Patient and patient's state they would like to be discharge, stating patient is having no significant symptoms and would like to manage low-sodium levels at home. Advised return to ER if patient begins experiencing worsening symptoms including, but not limited to, AMS and/or nausea/vomiting. Discussed patient with Dr. Hopkins. Undiagnosed new problem with uncertain prognosis? @ -No Drug Therapy requiring intensive monitoring for toxicity (Heparin, Nitro, Insulin, Cardizem)? @ -No Were any procedures done? @ -No Diagnosis/symptom? @ -Hyponatremia Acute, or Chronic, or Acute on Chronic? @ -Acute Uncomplicated (without systemic symptoms) or Complicated (systemic symptoms)? @ -Complicated Side effects of treatment? @ -No Exacerbation, Progression, or Severe Exacerbation? @ -No Poses a threat to life or bodily function? How? (Chest pain, USA, LA, pneumonia, PE, COPD, DKA, ARF, appy, cholecystitis, CVA, Diverticulitis, Homicidal, Suicidal, threat to staff... and all critical care pts) @ -No - Lab Data Result diagrams: 04/06/24 10:50 04/06/24 10:50 Lab Results 04/06/24 04/06/24 04/06/24 Range/Units 10:50 10:50 10:50 WBC 4.8 (3.8-10.6) k/uL RBC 3.55 L (3.80-5.40) m/uL Hgb 11.8 (11.4-16.0) gm/dL Hct 33.8 L (34.0-46.0) % MCV 95.1 (80.0-100.0) fL MCH 33.4 (25.0-35.0) pg MCHC 35.1 (31.0-37.0) g/dL RDW 14.6 (11.5-15.5) % Plt Count 394 (150-450) k/uL MPV 6.8 Neutrophils % 70 % Lymphocytes % 19 % Monocytes % 6 % Eosinophils % 3 % Basophils % 0 % Neutrophils # 3.3 (1.3-7.7) k/uL Lymphocytes # 0.9 L (1.0-4.8) k/uL Monocytes # 0.3 (0-1.0) k/uL Eosinophils # 0.1 (0-0.7) k/uL Basophils # 0.0 (0-0.2) k/uL PT (10.0-12.5) sec INR (<1.2) APTT (22.0-30.0) sec Sodium 126 L (137-145) mmol/L Potassium 3.8 (3.5-5.1) mmol/L Chloride 98 (98-107) mmol/L Carbon Dioxide 25 (22-30) mmol/L Anion Gap 3 mmol/L BUN 6 L (7-17) mg/dL Creatinine 0.60 (0.52-1.04) mg/dL Est GFR (CKD-EPI)AfAm >90 (>60 ml/min/1.73 sqM) Est GFR (CKD-EPI)NonAf >90 (>60 ml/min/1.73 sqM) Glucose 86 (74-99) mg/dL Calcium 8.3 L (8.4-10.2) mg/dL Magnesium 1.8 (1.6-2.3) mg/dL Total Bilirubin 0.3 (0.2-1.3) mg/dL AST 25 (14-36) U/L ALT 13 (4-34) U/L Alkaline Phosphatase 115 (38-126) U/L Troponin I (0.000-0.034) ng/mL Total Protein 6.6 (6.3-8.2) g/dL Albumin 3.9 (3.5-5.0) g/dL 04/06/24 04/06/24 Range/Units 11:20 11:20 WBC (3.8-10.6) k/uL RBC (3.80-5.40) m/uL Hgb (11.4-16.0) gm/dL Hct (34.0-46.0) % MCV (80.0-100.0) fL MCH (25.0-35.0) pg MCHC (31.0-37.0) g/dL RDW (11.5-15.5) % Plt Count (150-450) k/uL MPV Neutrophils % % Lymphocytes % % Monocytes % % Eosinophils % % Basophils % % Neutrophils # (1.3-7.7) k/uL Lymphocytes # (1.0-4.8) k/uL Monocytes # (0-1.0) k/uL Eosinophils # (0-0.7) k/uL Basophils # (0-0.2) k/uL PT 11.3 (10.0-12.5) sec INR 1.0 (<1.2) APTT 31.9 H (22.0-30.0) sec Sodium (137-145) mmol/L Potassium (3.5-5.1) mmol/L Chloride (98-107) mmol/L Carbon Dioxide (22-30) mmol/L Anion Gap mmol/L BUN (7-17) mg/dL Creatinine (0.52-1.04) mg/dL Est GFR (CKD-EPI)AfAm (>60 ml/min/1.73 sqM) Est GFR (CKD-EPI)NonAf (>60 ml/min/1.73 sqM) Glucose (74-99) mg/dL Calcium (8.4-10.2) mg/dL Magnesium (1.6-2.3) mg/dL Total Bilirubin (0.2-1.3) mg/dL AST (14-36) U/L ALT (4-34) U/L Alkaline Phosphatase (38-126) U/L Troponin I <0.012 (0.000-0.034) ng/mL Total Protein (6.3-8.2) g/dL Albumin (3.5-5.0) g/dL Disposition Clinical Impression: Hyponatremia Disposition: HOME SELF-CARE Condition: Stable Is patient prescribed a controlled substance at d/c from ED?: No Referrals: Alla Zavala DO [Primary Care Provider] - 1-2 days Time of Disposition: 12:00
[2024-04-06] MEDS: SODIUM CHLORIDE 0.9% 1,000 ML IV STA (10:51)
[2024-04-06 10:53] VITALS: PULSE 71
[2024-04-06 11:12] LABS: Basophils % (A) 0 %; Eosinophils # (A) 0.1 k/uL (0-0.7); Eosinophils % (A) 3 %; HCT 33.8 % (34.0-46.0); HGB 11.8 gm/dL (11.4-16.0); Lymphocytes # (A) 0.9 k/uL (1.0-4.8); Lymphocytes % (A) 19 %; MCH 33.4 pg (25.0-35.0); MCHC 35.1 g/dL (31.0-37.0); MCV 95.1 fL (80.0-100.0); Mean Platelet Volume 6.8; Monocytes # (A) 0.3 k/uL (0-1.0); Monocytes % (A) 6 %; Neutrophils # (A) 3.3 k/uL (1.3-7.7); Neutrophils % (A) 70 %; Platelet Count 394 k/uL (150-450); RBC 3.55 m/uL (3.80-5.40); RDW 14.6 % (11.5-15.5); WBC 4.8 k/uL (3.8-10.6)
[2024-04-06 11:20] LABS: ALT 13 U/L (4-34); AST 25 U/L (14-36); African American GFR (CKD) >90 (>60 ml/min/1.73 sqM); Albumin 3.9 g/dL (3.5-5.0); Alkaline Phosphatase 115 U/L (38-126); Anion Gap 3 mmol/L; Blood Urea Nitrogen 6 mg/dL (7-17); Calcium 8.3 mg/dL (8.4-10.2); Carbon Dioxide 25 mmol/L (22-30); Chloride 98 mmol/L (98-107); Glucose 86 mg/dL (74-99); Non-African American GFR(CKD) >90 (>60 ml/min/1.73 sqM); Potassium 3.8 mmol/L (3.5-5.1); Sodium 126 mmol/L (137-145); Total Bilirubin 0.3 mg/dL (0.2-1.3); Total Protein 6.6 g/dL (6.3-8.2)
[2024-04-06 11:34] LABS: Partial Thromboplastin Time 31.9 sec (22.0-30.0); Prothrombin Time 11.3 sec (10.0-12.5)
--- NOTE | 2024-04-06 12:01 | XR ---
EXAMINATION TYPE: XR chest 2V DATE OF EXAM: 04/06/2024 11:40 AM COMPARISON: Chest radiographs from 04/20/2023 CLINICAL INDICATION: Female, 53 years old with history of Abnormal ECG; [facility] TECHNIQUE: XR chest 2V Frontal and lateral views of the chest. FINDINGS: Lungs/Pleura: There is no evidence of pleural effusion, focal consolidation, or pneumothorax. Pulmonary vascularity: Unremarkable. Heart/mediastinum: Cardiomediastinal silhouette is unremarkable. Musculoskeletal: No acute osseous pathology. Other findings: None Lines/Tubes: [id number] projecting over the right hemithorax with distal tip at the cavoatrial junction. IMPRESSION: No acute cardiopulmonary disease/process. [facility], , 04/06/2024 11:59 AM
== END 2024-04-06 14:23 | disposition home or self-care (01) ==
LOC: EC 09:43
DX: C34.90 Malignant neoplasm of unspecified part of unspecified bronchus or lung (principal); E87.1 Hypo-osmolality and hyponatremia; J44.9 Chronic obstructive pulmonary disease, unspecified; I10 Essential (primary) hypertension; F17.200 Nicotine dependence, unspecified, uncomplicated; Z88.5 Allergy status to narcotic agent
CPT/HCPCS: 36415; 71046; 80053; 83735; 84484; 85025; 85610; 85730; 93005; 96360; 96361; 99284

== ENCOUNTER → 2024-09-05 | Outpatient (CLI) | payer OTHER ==
--- NOTE | 2024-09-05 15:23 | NM ---
EXAMINATION TYPE: NM bone scan whole body DATE OF EXAM: 09/05/2024 COMPARISON: Head CT 05/04/2024 HISTORY: Lung cancer Delayed whole-body scanning was performed following the injection of 23.2 mCi Tc 99m MDP. Images wer e acquired 3 hours post injection. FINDINGS: There is increased uptake within the mid diaphysis left femur. There is some focal uptake within the intertrochanteric region of the left femur. Increased uptake is within the left femoral head. Couple of areas of increased uptake are within the proximal and distal right femur. These are faint. There is uptake within the region of L4 centrally and L3 on the right. There is mild uptake in the re gion of the left anterior sixth rib and possibly seventh rib. There is uptake centrally on the frontal calvarium and along the right parietal calvarium. Uptake within the shoulders may be degenerative in nature. IMPRESSION: 1. Scattered areas of uptake discussed above including bilateral femurs calvarium and possibly left r ibs. Findings suspicious for metastatic disease. Some of these identified areas correlate with the PE T/CT of portions within the [id number]. [facility], , 09/05/2024 3:21 PM
== END | disposition home or self-care (01) ==
LOC: RADNMMAIN 10:37
PROVIDERS: ATTEND Radiology Radiation Oncology
DX: C79.31 Secondary malignant neoplasm of brain (principal); C78.7 Secondary malignant neoplasm of liver and intrahepatic bile duct; F17.210 Nicotine dependence, cigarettes, uncomplicated; C34.12 Malignant neoplasm of upper lobe, left bronchus or lung
CPT/HCPCS: 78306; A9503; J1642

== ENCOUNTER → 2024-10-17 | Outpatient (CLI) | payer OTHER ==
--- NOTE | 2024-10-18 14:09 | MR ---
INDICATION: Patient age:Female; 53 years old; Reason for study: C34.92; [facility]. COMPARISON: MRI brain 04/18/2024, 09/13/2023, 05/27/2023, CT head 04/18/2024. TECHNIQUE: Multi planar, multi sequence imaging was performed through the brain. The patient was then given 4 cc of Gadobutrol intravenously and multi planar, T1 fat-saturation images were obtained. FINDINGS: The boyd-white junctions, ventricular system, basal cisterns appear unremarkable. Age-appropriate cer ebral parenchymal volume. Diffusion-weighted imaging shows no evidence of restricted diffusion to sug gest acute/subacute infarct. Intracranial arterial flow voids are maintained. Midline structures show no abnormality. Stable few scattered areas of high T2/FLAIR signal intensity are seen within the per iventricular and subcortical white matter. Largest within the right frontal lobe subcortical white ma tter measuring up to 5 mm (series 601, image 42). The susceptibility weighted images do not reveal an y evidence for micro-hemorrhage. After administration of gadolinium, no abnormal enhancement is seen. The bone marrow signal is within normal limits. The paranasal sinuses and globes are unremarkable. IMPRESSION: 1. No evidence of intracranial mass, acute/subacute infarct, or abnormal enhancement. 2. Stable mild nonspecific white matter changes, likely related to small vessel ischemic disease. Dem yelinating disease, chronic migraines, vasculitis, Lyme disease are other considerations. [facility], , 10/18/2024 2:07 PM
== END | disposition home or self-care (01) ==
LOC: RADMRIMAIN 20:15
PROVIDERS: ATTEND Internal Medicine
DX: C34.92 Malignant neoplasm of unspecified part of left bronchus or lung (principal); G43.909 Migraine, unspecified, not intractable, without status migrainosus; G37.9 Demyelinating disease of central nervous system, unspecified
CPT/HCPCS: 70553; A9585

== ENCOUNTER → 2024-10-19 | Outpatient (CLI) | payer OTHER ==
--- NOTE | 2024-10-19 16:52 | PE ---
EXAMINATION TYPE: PET CT fusion skull to thigh DATE OF EXAM: 10/19/2024 CLINICAL INDICATION:Female, 53 years old with history of C34.12 LUNG CANCER; TECHNIQUE: Following the intravenous administration of 8.64 mCi of F-18 FDG, whole body images are performed from the skull base to the midthigh. Images are reviewed on the computer in the coronal, a xial, and sagittal planes. Reconstructed rotating images are created on independent workstation and reviewed on the computer. A non-contrast CT is performed in conjunction with the PET scan. Glucose level 105 mg/dL CT DLP: 342 mGycm, Automated exposure control for dose reduction was used. COMPARISON: CT 03/29/2024, 01/10/2024, 04/20/2023, 04/06/2023, 05/10/2022, 04/26/2022, PET/CT 05/04/2024, 05/25, MRI: 10/17/2024, 09/13/2023, 05/27/2023 FINDINGS: Mediastinal SUV mean is 1.6. Hepatic parenchyma SUV mean is 2.1. SKULL BASE AND NECK: No suspicious radiotracer activity. CHEST, MEDIASTINUM, AND HILAR REGION: Enlarged left anterior epicardial lymph node measuring up to 1.7 cm with a maximum SUV of 4.6. ABDOMEN AND PELVIS: Development of innumerable hypodense lesions throughout both hepatic lobes. Max SUV within the left h epatic lobe is 6. Max SUV within the right hepatic lobe is 6.5. Multiple mildly enlarged periaortic lymph nodes measuring up to 1.7 cm with a maximum SUV of 10.2. Ad ditional enlarged FDG avid peripancreatic and pericaval lymph nodes. Additional enlarged FDG avid low er paraesophageal lymph nodes. Focal radiotracer uptake within the anus with a max SUV of 9.8. Abnormal soft tissue thickening of the gastric antrum/proximal duodenum and pancreatic head with diaz ed increased FDG activity. Demonstrates a maximum SUV of 11.2. Left crural lesion measuring 1.8 cm in thickness which is FDG avid with a max SUV of 6.7. MUSCULOSKELETAL STRUCTURES: Scattered regions of FDG activity throughout the osseous structures. This includes the spine, bilater al ribs, manubrium, bilateral humeri, pelvic bones, and the right femur. Focal radiotracer uptake within the manubrium with a max SUV of 3.4. Scattered focal radiotracer uptake within the spine with example including a T11 vertebral body with a maximum SUV of 4.8. L5 vertebral body with a max SUV of 4.9. Right proximal femoral diaphysis with a max SUV 8.1. Left posterior 11th rib with a max SUV of 3.5. Right lateral seventh rib with a maximum SUV of 11.6. OTHER CT: Right chest wall Etbyfe-x-[id number] tip terminating in the right atrium. Small pericardial effus ion. Trace left pleural effusion. Left fat-containing inguinal hernia. Biliary stent identified. Pneu mobilia. Development of pancreatic ductal dilatation measuring up to 8 mm at the pancreatic head. Pat armin medial left upper lung linear scarring. Atherosclerotic calcification of the aorta and its branch es. Small amount of ascites within the pelvis. Uterus is surgically absent. IMPRESSION: 1. Overall significant progression of disease from prior PET/CT as described above with FDG avid oss eous metastasis, FDG avid metastatic adenopathy, FDG avid hepatic metastasis, and FDG avid mass withi n the right upper quadrant involving the duodenum, gastric antrum, and pancreatic head. 2. Focal intense radiotracer activity within the anus. This may represent malignancy versus physiolo gic uptake. Direct visualization is recommended. [facility], , 10/19/2024 4:50 PM
== END | disposition home or self-care (01) ==
LOC: RADPETMAIN 10:11
PROVIDERS: ATTEND Internal Medicine
DX: C34.12 Malignant neoplasm of upper lobe, left bronchus or lung (principal); C78.7 Secondary malignant neoplasm of liver and intrahepatic bile duct
CPT/HCPCS: 78815; A9552